=== PATIENT | female | born 1970 | race Caucasian/White ===

== ENCOUNTER 2024-07-10 01:43 | Emergency (ER) | payer OTHER ==
[~2024-07-10] VITALS: Ht 157.5 cm; Wt 54.4 kg
[2024-07-10] MEDS ORDERED: KETOROLAC TROMETHAMINE 30 MG INJ ONE (02:15)
[2024-07-10] MEDS: KETOROLAC TROMETHAMINE 30 MG INJ IM ONE (02:22)
[2024-07-10] MEDS ORDERED: KETO10TA2 PO (03:17)
[2024-07-10 03:24] VITALS: BP 98/76; O2SAT 97
== END 2024-07-10 03:25 | disposition home or self-care (01) ==
LOC: ER 01:48
DX: S70.12XA Contusion of left thigh, initial encounter (principal); V03.99XA Pedestrian with other conveyance injured in collision with car, pick-up truck or van, unspecified whether traffic or nontraffic accident, initial encounter; Y93.89 Activity, other specified; Y92.89 Other specified places as the place of occurrence of the external cause; Y99.8 Other external cause status
CPT/HCPCS: 29530; 73551; 96372; 99283; J1885; A4606; A4663